=== PATIENT | female | born 1945 | race Caucasian/White ===

== ENCOUNTER 2017-07-06 16:45 | Inpatient (IN) | payer MEDICARE, MEDICAID ==
[~2017-07-06] VITALS: Ht 160 cm; Wt 54.0 kg
[~2017-07-06 16:45] MED LIST: ALEN70TA69 PO; AMAN100C12 PO; ASPI-556 PO; CARB100 PO; CARB200C4 PO; CLIN300C3 PO; DIVA250T25 PO; DOCU250C91 PO; FOLI1TAB15 PO; LEVO175T4 PO; LEVO500 PO; MULT-723 PO; NACL1 PO; PRAV20TA4 PO; RANI150T12 PO; RISP0.5T19 PO; SENN-175 PO; SERT50TA12 PO; [UNRECOGNIZED DRUG - OTHER] PO
[2017-07-06 17:50] VITALS: BP 105/66
[2017-07-06] MEDS ORDERED: DOCUSATE SODIUM 283 MG/5 ML MINI-ENEMA PR PRN (18:00)
[2017-07-06] MEDS ORDERED: ACETAMINOPHEN 325 MG TABLET PO PRN (18:00)
[2017-07-06 18:03] VITALS: BP 105/66
[2017-07-06] MEDS: AMANTADINE HCL 100 MG CAPSULE PO SCH (20:57)
[2017-07-06] MEDS: SENNA 187 MG TABLET PO SCH (20:58)
[2017-07-06] MEDS: DOCUSATE SODIUM 250 MG CAPSULE PO SCH (20:58)
[2017-07-06] MEDS: DIVALPROEX SODIUM 250 MG DR TABLET PO SCH (20:58)
[2017-07-06] MEDS: SODIUM CHLORIDE 1 GM TABLET PO SCH (20:58)
[2017-07-06] MEDS: PRAVASTATIN SODIUM 20 MG TABLET PO SCH (20:58)
[2017-07-06] MEDS: CLINDAMYCIN HCL 300 MG CAPSULE PO SCH (23:16)
[2017-07-07] VITALS: BP 130/79
[2017-07-07 06:45] LABS: BASOPHILS % (AUTO) 0.3 % (0.0-2.0); EOSINOPHILS % (AUTO) 2.1 % (1.0-6.0); HEMOGLOBIN 14.3 g/dL (12.0-16.0); LYMPHOCYTES # (AUTO) 1.8 K/uL (1.0-4.8); LYMPHOCYTES % (AUTO) 21.5 % (22.0-44.0); MEAN CORPUSCULAR HEMOGLOBIN 36.7 pg (26.0-34.0); MEAN CORPUSCULAR VOLUME 105 fL (80-100); MONOCYTES % (AUTO) 12.2 % (2.0-9.0); NEUTROPHILS # (AUTO) 5.4 K/uL (1.8-7.7); NEUTROPHILS % (AUTO) 63.9 % (40.0-70.0); PLATELET COUNT (AUTO) 195 K/uL (150-450); RED CELL DISTRIBUTION WIDTH 13.7 % (11.5-14.5); WHITE BLOOD COUNT (AUTO) 8.5 K/uL (4.5-11.0)
[2017-07-07 06:53] LABS: ALANINE AMINOTRANSFERASE 14 U/L (12-78); ANION GAP 6 mmol/L (8-16); ASPARTATE AMINOTRANSFERASE 11 U/L (15-37); BILIRUBIN,TOTAL 0.3 mg/dL (0.1-1.0); CALCIUM, TOTAL 8.2 mg/dL (8.8-10.5); CARBON DIOXIDE 27 mmol/L (22-29); CHLORIDE 95 mmol/L (98-107); CREATININE 0.57 mg/dL (0.60-1.30); GLOMERULAR FILTR. RATE CALC > 60 mL/min (>60); POTASSIUM 4.3 mmol/L (3.5-5.1); SODIUM SERUM 128 mmol/L (136-145); TOTAL PROTEIN, SERUM 6.3 g/dL (6.4-8.2); UREA NITROGEN, BLOOD 17 mg/dL (7-18)
[2017-07-07 07:30] VITALS: BP 132/73
[2017-07-07 07:37] LABS: RBC MORPHOLOGY COMMENT ABNORMAL RBC MORPH
[2017-07-07 08:02] LABS: APPEARANCE,URINE CLEAR (CLEAR); GLUCOSE, URINE (UA) NEGATIVE (NEGATIVE); KETONES,URINE NEGATIVE (NEGATIVE); LEUKOCYTE ESTERASE ,URINE NEGATIVE (NEGATIVE); PROTEIN,URINE NEGATIVE (NEGATIVE)
[2017-07-07] MEDS: SODIUM CHLORIDE 1 GM TABLET PO SCH ×2 (08:03→21:05)
[2017-07-07] MEDS: LEVOFLOXACIN 500 MG TABLET PO SCH (08:03)
[2017-07-07] MEDS: DOCUSATE SODIUM 250 MG CAPSULE PO SCH ×2 (08:04→21:00)
[2017-07-07] MEDS: AMANTADINE HCL 100 MG CAPSULE PO SCH ×2 (08:04→21:05)
[2017-07-07] MEDS: PANTOPRAZOLE SODIUM 40 MG DR TABLET PO SCH (08:04)
[2017-07-07] MEDS: DIVALPROEX SODIUM 250 MG DR TABLET PO SCH ×2 (08:04→21:06)
[2017-07-07] MEDS: CLINDAMYCIN HCL 300 MG CAPSULE PO SCH ×3 (08:05→23:52)
[2017-07-07 08:17] LABS: ADD UA MICROSCOPIC YES; OCCULT BLOOD,URINE TRACE (NEGATIVE)
[2017-07-07 08:18] LABS: RBC,URINE 0-2 /HPF (0-2); SQUAMOUS EPITHELIAL CELL,UR Rare /LPF (None Seen); WBC,URINE None Seen /HPF (0-5)
[2017-07-07] MEDS ORDERED: CLINDAMYCIN HCL 150 MG CAPSULE PO SCH (09:00)
[2017-07-07 15:03] VITALS: BP 137/65
[2017-07-07] MEDS: SENNA 187 MG TABLET PO SCH (21:00)
[2017-07-07] MEDS: PRAVASTATIN SODIUM 20 MG TABLET PO SCH (21:05)
[2017-07-08 00:44] VITALS: BP 132/80
[2017-07-08 08:00] VITALS: BP 141/77
[2017-07-08] MEDS: DIVALPROEX SODIUM 250 MG DR TABLET PO SCH ×2 (08:16→20:08)
[2017-07-08] MEDS: ASPIRIN 81 MG CHEWABLE TABLET PO SCH (08:17)
[2017-07-08] MEDS: PANTOPRAZOLE SODIUM 40 MG DR TABLET PO SCH (08:17)
[2017-07-08] MEDS: AMANTADINE HCL 100 MG CAPSULE PO SCH ×2 (08:17→20:09)
[2017-07-08] MEDS: DOCUSATE SODIUM 250 MG CAPSULE PO SCH ×2 (08:17→20:08)
[2017-07-08] MEDS: LEVOFLOXACIN 500 MG TABLET PO SCH (08:17)
[2017-07-08] MEDS: SODIUM CHLORIDE 1 GM TABLET PO SCH ×2 (08:17→20:08)
[2017-07-08] MEDS: CLINDAMYCIN HCL 300 MG CAPSULE PO SCH ×3 (08:17→23:18)
[2017-07-08 14:57] VITALS: BP 146/76
[2017-07-08] MEDS: SENNA 187 MG TABLET PO SCH (20:08)
[2017-07-08] MEDS: PRAVASTATIN SODIUM 20 MG TABLET PO SCH (20:08)
[2017-07-08] MEDS: RisperiDONE 0.5 MG TABLET PO SCH (20:08)
[2017-07-08 23:21] VITALS: BP 107/68
[2017-07-09] MEDS: LEVOTHYROXINE SODIUM 125 MCG TABLET PO SCH (06:18)
[2017-07-09 07:40] VITALS: BP 125/70
[2017-07-09] MEDS: ASPIRIN 81 MG CHEWABLE TABLET PO SCH (08:47)
[2017-07-09] MEDS: SERTRALINE HCL 50 MG TABLET PO SCH (08:47)
[2017-07-09] MEDS: DIVALPROEX SODIUM 250 MG DR TABLET PO SCH ×2 (08:47→21:10)
[2017-07-09] MEDS: DOCUSATE SODIUM 250 MG CAPSULE PO SCH ×2 (08:49→21:10)
[2017-07-09] MEDS: AMANTADINE HCL 100 MG CAPSULE PO SCH ×2 (08:49→21:10)
[2017-07-09] MEDS: PANTOPRAZOLE SODIUM 40 MG DR TABLET PO SCH (08:49)
[2017-07-09] MEDS: SODIUM CHLORIDE 1 GM TABLET PO SCH ×2 (08:49→21:10)
[2017-07-09] MEDS: RisperiDONE 0.5 MG TABLET PO SCH ×2 (08:49→21:00)
[2017-07-09] MEDS: CLINDAMYCIN HCL 300 MG CAPSULE PO SCH ×3 (08:50→23:06)
[2017-07-09] MEDS: LEVOFLOXACIN 500 MG TABLET PO SCH (08:52)
[2017-07-09 15:02] VITALS: BP 136/70
[2017-07-09 18:00] VITALS: BP 156/86
[2017-07-09 19:25] VITALS: BP 165/85
[2017-07-09 20:37] VITALS: BP 112/86
[2017-07-09] MEDS: SENNA 187 MG TABLET PO SCH (21:10)
[2017-07-09] MEDS: PRAVASTATIN SODIUM 20 MG TABLET PO SCH (21:10)
[2017-07-09 21:11] VITALS: BP 110/70
[2017-07-10] VITALS: BP 128/88
[2017-07-10] MEDS: LEVOTHYROXINE SODIUM 125 MCG TABLET PO SCH (06:17)
[2017-07-10 07:26] VITALS: BP 138/75
[2017-07-10] MEDS: CLINDAMYCIN HCL 300 MG CAPSULE PO SCH (08:56)
[2017-07-10] MEDS: LEVOFLOXACIN 500 MG TABLET PO SCH (08:56)
[2017-07-10] MEDS: DIVALPROEX SODIUM 250 MG DR TABLET PO SCH (08:56)
[2017-07-10] MEDS: SODIUM CHLORIDE 1 GM TABLET PO SCH (08:57)
[2017-07-10] MEDS: DOCUSATE SODIUM 250 MG CAPSULE PO SCH (08:57)
[2017-07-10] MEDS: PANTOPRAZOLE SODIUM 40 MG DR TABLET PO SCH (08:57)
[2017-07-10] MEDS: AMANTADINE HCL 100 MG CAPSULE PO SCH (08:57)
[2017-07-10] MEDS: SERTRALINE HCL 50 MG TABLET PO SCH (08:57)
[2017-07-10] MEDS: ASPIRIN 81 MG CHEWABLE TABLET PO SCH (08:57)
[2017-07-10] MEDS: RisperiDONE 0.5 MG TABLET PO SCH (08:57)
== END 2017-07-10 14:34 | disposition home or self-care (01) | DRG 56 ==
LOC: 2WR 16:45
DX: G81.91 Hemiplegia, unspecified affecting right dominant side (principal); I63.9 Cerebral infarction, unspecified; E44.0 Moderate protein-calorie malnutrition; E87.1 Hypo-osmolality and hyponatremia; G40.909 Epilepsy, unspecified, not intractable, without status epilepticus; E03.9 Hypothyroidism, unspecified; E78.5 Hyperlipidemia, unspecified; F31.9 Bipolar disorder, unspecified; Z79.899 Other long term (current) drug therapy; Z86.73 Personal history of transient ischemic attack (TIA), and cerebral infarction without residual deficits; Z88.2 Allergy status to sulfonamides; Z88.5 Allergy status to narcotic agent
CPT/HCPCS: 84295; 84443; 87081; 92507; 92523; 97110; 97116; 97162; 97167; 97530; 97535; 99366

== ENCOUNTER 2018-03-23 12:29 | Inpatient (IN) | payer MEDICARE, MEDICAID ==
[~2018-03-23] VITALS: Ht 160 cm; Wt 50.0 kg
[~2018-03-23 12:29] MED LIST changes: -CARB200C4 PO; -CLIN300C3 PO; -LEVO500 PO; +RANI-248 PO; -RANI150T12 PO; -SENN-175 PO; -[UNRECOGNIZED DRUG - OTHER] PO
[2018-03-23] MEDS ORDERED: IOVERSOL 350 MG/ML 100 ML VIAL ONE (12:40)
[2018-03-23] MEDS ORDERED: ALTEPLASE PER STROKE PROTOCOL CLINICAL ONE (12:45)
[2018-03-23] MEDS ORDERED: WATER FOR INJECTION STERILE IV ONE ×2 (12:48)
[2018-03-23] MEDS ORDERED: ALTEPLASE IV ONE ×2 (12:48)
[2018-03-23 12:54] LABS: BASOPHILS % (AUTO) 0.6 % (0.0-2.0); EOSINOPHILS % (AUTO) 2.6 % (1.0-6.0); HEMATOCRIT 41.3 % (36-46); HEMOGLOBIN 14.4 g/dL (12.0-16.0); LYMPHOCYTES # (AUTO) 1.5 K/uL (1.0-4.8); LYMPHOCYTES % (AUTO) 20.6 % (22.0-44.0); MEAN CORPUSCULAR HEMOGLOBIN 35.8 pg (26.0-34.0); MEAN CORPUSCULAR VOLUME 102 fL (80-100); MONOCYTES # (AUTO) 1.1 K/uL (0.1-1.0); MONOCYTES % (AUTO) 15.3 % (2.0-9.0); NEUTROPHILS # (AUTO) 4.5 K/uL (1.8-7.7); NEUTROPHILS % (AUTO) 60.9 % (40.0-70.0); PLATELET COUNT (AUTO) 121 K/uL (150-450); RED BLOOD CELL COUNT(AUTO) 4.04 MIL/uL (4.00-5.20); RED CELL DISTRIBUTION WIDTH 14.2 % (11.5-14.5)
[2018-03-23] MEDS ORDERED: LORazepam 2 MG/ML VIAL IVP ONE (13:00)
[2018-03-23 13:03] LABS: ANION GAP 7 mmol/L (8-16); CALCIUM, TOTAL 8.7 mg/dL (8.8-10.5); CARBON DIOXIDE 28 mmol/L (22-29); CHLORIDE 96 mmol/L (98-107); GLOMERULAR FILTR. RATE CALC > 60 mL/min (>60); GLUCOSE,RANDOM 84 mg/dL (70-110); POTASSIUM 4.2 mmol/L (3.5-5.1); SODIUM SERUM 131 mmol/L (136-145); UREA NITROGEN, BLOOD 18 mg/dL (7-18)
[2018-03-23 13:08] LABS: PROTHROMBIN TIME 10.5 SEC (9.4-11.6)
[2018-03-23 13:17] LABS: ALANINE AMINOTRANSFERASE 20 U/L (12-78); ALBUMIN 3.5 g/dL (3.4-5.0); ALKALINE PHOSPHATASE 63 U/L (46-116); ASPARTATE AMINOTRANSFERASE 15 U/L (15-37); BILIRUBIN,TOTAL 0.3 mg/dL (0.1-1.0); CREATINE KINASE, TOTAL 44 U/L (26-192); THYROID STIMULATING HORMONE 0.11 uIU/mL (0.36-3.74); TOTAL PROTEIN, SERUM 7.4 g/dL (6.4-8.2); VALPROIC ACID 88 mcg/mL (50-100)
[2018-03-23 13:48] LABS: APPEARANCE,URINE CLEAR (CLEAR); BILIRUBIN,URINE NEGATIVE (NEGATIVE); GLUCOSE, URINE (UA) NEGATIVE (NEGATIVE); KETONES,URINE NEGATIVE (NEGATIVE); LEUKOCYTE ESTERASE ,URINE NEGATIVE (NEGATIVE); NITRATE,URINE NEGATIVE (NEGATIVE); OCCULT BLOOD,URINE MODERATE (NEGATIVE); PROTEIN,URINE NEGATIVE (NEGATIVE); UROBILINOGEN,URINE 0.2 mg/dL (<=1.0)
[2018-03-23 13:52] LABS: BACTERIA,URINE Few /HPF (None Seen); SQUAMOUS EPITHELIAL CELL,UR Few /LPF (None Seen); WBC,URINE 0-2 /HPF (0-5)
[2018-03-23] MEDS ORDERED: HYDROCODONE/ACETAMINOPHEN 5-325 MG TABLET PO PRN (16:00)
[2018-03-23] MEDS ORDERED: ALBUTEROL SULFATE 2.5 MG/0.5 ML NEB SOLUTION NEB PRN (16:00)
[2018-03-23] MEDS ORDERED: IPRATROPIUM BROMIDE 0.5 MG/2.5 ML NEB SOLUTION NEB PRN (16:00)
[2018-03-23] MEDS ORDERED: ZOLPIDEM TARTRATE 5 MG TABLET PO PRN (16:00)
[2018-03-23] MEDS ORDERED: ACETAMINOPHEN 325 MG TABLET PO PRN (16:00)
[2018-03-23] MEDS ORDERED: HEPARIN SODIUM,PORCINE 5,000 UNITS/ML VIAL SQ SCH (16:00)
[2018-03-23] MEDS ORDERED: MAGNESIUM HYDROXIDE SUSPENSION 30 ML UDCUP PO PRN (16:00)
[2018-03-23] MEDS ORDERED: ONDANSETRON HCL 4 MG/2 ML VIAL IVP PRN (16:00)
[2018-03-23] MEDS ORDERED: BISACODYL 10 MG RECTAL RECTAL SUPPOSITORY PR PRN (16:00)
[2018-03-23 16:12] VITALS: BP 149/49
[2018-03-23 20:00] VITALS: BP 130/59
[2018-03-23] MEDS: DOCUSATE SODIUM 100 MG CAPSULE PO SCH (21:00)
[2018-03-23] MEDS: VALPROATE SODIUM 750 MG in DEXTROSE 5%-WATER 100 ML IV SCH (21:43)
[2018-03-23] MEDS ORDERED: SODIUM CHLORIDE 0.9% 250 ML IV ONE (21:44)
[2018-03-24] VITALS: BP 129/66
[2018-03-24 04:00] VITALS: BP 103/55
[2018-03-24 08:00] VITALS: BP 170/51
[2018-03-24] MEDS: PANTOPRAZOLE SODIUM 40 MG/VIAL IVP SCH (08:37)
[2018-03-24] MEDS: VALPROATE SODIUM 750 MG in DEXTROSE 5%-WATER 100 ML IV SCH (08:38)
[2018-03-24] MEDS: DOCUSATE SODIUM 100 MG CAPSULE PO SCH ×2 (08:38→21:00)
[2018-03-24] MEDS: CarBAMazepine 100 MG CHEWABLE TABLET PO SCH ×2 (08:38→21:00)
[2018-03-24 12:00] VITALS: BP 117/84
[2018-03-24] MEDS ORDERED: LORazepam 2 MG/ML VIAL IM ONE (13:45)
[2018-03-24] MEDS ORDERED: LORazepam 2 MG/ML VIAL IVP ONE ×2 (13:45→14:00)
[2018-03-24 16:00] VITALS: BP 121/62
[2018-03-24] MEDS: DEXTROSE 5%-0.45% SODIUM CHL 1,000 ML IV SCH (19:37)
[2018-03-24 21:08] VITALS: BP 129/90
[2018-03-25] VITALS (7 sets, daily range): BP systolic 96–176; BP diastolic 59–88
[2018-03-25] MEDS: VALPROATE SODIUM 750 MG in DEXTROSE 5%-WATER 100 ML IV SCH ×3 (00:18→22:43)
[2018-03-25] MEDS: DEXTROSE 5%-0.45% SODIUM CHL 1,000 ML IV SCH (07:50)
[2018-03-25] MEDS: DOCUSATE SODIUM 100 MG CAPSULE PO SCH ×3 (09:00→21:26)
[2018-03-25] MEDS: CarBAMazepine 100 MG CHEWABLE TABLET PO SCH ×3 (09:00→21:26)
[2018-03-25] MEDS: PANTOPRAZOLE SODIUM 40 MG/VIAL IVP SCH (10:15)
[2018-03-25] MEDS ORDERED: SODIUM CHLORIDE 0.9% 250 ML IV ONE (10:15)
[2018-03-25] MEDS ORDERED: LORazepam 2 MG/ML VIAL IVP PRN (12:15)
[2018-03-25] MEDS: LORazepam 2 MG/ML VIAL IM PRN ×2 (13:28→18:47)
[2018-03-25 15:07] LABS: BASOPHILS % (AUTO) 0.3 % (0.0-2.0); EOSINOPHILS % (AUTO) 2.4 % (1.0-6.0); HEMATOCRIT 44.4 % (36-46); HEMOGLOBIN 15.4 g/dL (12.0-16.0); LYMPHOCYTES # (AUTO) 1.3 K/uL (1.0-4.8); LYMPHOCYTES % (AUTO) 21.6 % (22.0-44.0); MEAN CORPUSCULAR HEMOGLOBIN 35.2 pg (26.0-34.0); MEAN CORPUSCULAR HGB CONC 34.8 G/dL (31.0-37.0); MEAN CORPUSCULAR VOLUME 101 fL (80-100); MONOCYTES % (AUTO) 16.5 % (2.0-9.0); NEUTROPHILS # (AUTO) 3.5 K/uL (1.8-7.7); NEUTROPHILS % (AUTO) 59.2 % (40.0-70.0); PLATELET COUNT (AUTO) 114 K/uL (150-450); RED BLOOD CELL COUNT(AUTO) 4.38 MIL/uL (4.00-5.20); RED CELL DISTRIBUTION WIDTH 13.9 % (11.5-14.5)
[2018-03-25 15:22] LABS: ANION GAP 11 mmol/L (8-16); CALCIUM, TOTAL 8.1 mg/dL (8.8-10.5); CARBON DIOXIDE 24 mmol/L (22-29); CHLORIDE 98 mmol/L (98-107); CREATININE 0.55 mg/dL (0.60-1.30); GLOMERULAR FILTR. RATE CALC > 60 mL/min (>60); GLUCOSE,RANDOM 79 mg/dL (70-110); POTASSIUM 3.9 mmol/L (3.5-5.1); SODIUM SERUM 133 mmol/L (136-145); UREA NITROGEN, BLOOD 12 mg/dL (7-18)
[2018-03-25] MEDS ORDERED: LevETIRAcetam 500 MG TABLET PO SCH (22:00)
[2018-03-25] MEDS ORDERED: LevETIRAcetam 1,000 MG in DEXTROSE 5%-WATER 100 ML IV ONE (22:30)
[2018-03-26 04:00] VITALS: BP 103/63
[2018-03-26] MEDS: DEXTROSE 5%-0.45% SODIUM CHL 1,000 ML IV SCH ×2 (04:11→21:31)
[2018-03-26] MEDS ORDERED: ALENDRONATE SODIUM 70 MG TABLET PO SCH (06:30)
[2018-03-26] MEDS: LEVOTHYROXINE SODIUM 125 MCG TABLET PO SCH (06:43)
[2018-03-26 07:45] VITALS: BP 101/64
[2018-03-26 07:49] LABS: ALANINE AMINOTRANSFERASE 17 U/L (12-78); ALBUMIN 3.2 g/dL (3.4-5.0); ALKALINE PHOSPHATASE 58 U/L (46-116); ANION GAP 6 mmol/L (8-16); ASPARTATE AMINOTRANSFERASE 22 U/L (15-37); BILIRUBIN,TOTAL 0.5 mg/dL (0.1-1.0); CARBAMAZEPINE (TEGRETOL) 0.5 mcg/mL (4.0-12.0); CARBON DIOXIDE 26 mmol/L (22-29); CHLORIDE 99 mmol/L (98-107); GLOMERULAR FILTR. RATE CALC > 60 mL/min (>60); GLUCOSE,RANDOM 85 mg/dL (70-110); SODIUM SERUM 131 mmol/L (136-145); UREA NITROGEN, BLOOD 8 mg/dL (7-18); VALPROIC ACID 90 mcg/mL (50-100)
[2018-03-26] MEDS: PANTOPRAZOLE SODIUM 40 MG/VIAL IVP SCH (09:01)
[2018-03-26] MEDS: FOLIC ACID 1 MG TABLET PO SCH (09:01)
[2018-03-26] MEDS: ASPIRIN 81 MG EC TABLET PO SCH (09:01)
[2018-03-26] MEDS: RisperiDONE 0.5 MG TABLET PO SCH ×2 (09:01→21:31)
[2018-03-26] MEDS: LevETIRAcetam 500 MG TABLET PO SCH ×2 (09:01→21:31)
[2018-03-26] MEDS: CarBAMazepine 100 MG CHEWABLE TABLET PO SCH ×2 (09:02→21:31)
[2018-03-26] MEDS: VALPROATE SODIUM 750 MG in DEXTROSE 5%-WATER 100 ML IV SCH ×2 (09:02→21:31)
[2018-03-26] MEDS: SERTRALINE HCL 50 MG TABLET PO SCH (09:02)
[2018-03-26] MEDS: AMANTADINE HCL 100 MG CAPSULE PO SCH ×2 (09:02→21:31)
[2018-03-26 11:12] VITALS: BP 102/50
[2018-03-26 15:03] VITALS: BP 124/65
[2018-03-26 15:42] LABS: APPEARANCE,URINE CLEAR (CLEAR); BILIRUBIN,URINE NEGATIVE (NEGATIVE); GLUCOSE, URINE (UA) NEGATIVE (NEGATIVE); KETONES,URINE NEGATIVE (NEGATIVE); LEUKOCYTE ESTERASE ,URINE SMALL (NEGATIVE); NITRATE,URINE NEGATIVE (NEGATIVE); OCCULT BLOOD,URINE MODERATE (NEGATIVE); PROTEIN,URINE NEGATIVE (NEGATIVE)
[2018-03-26 16:38] LABS: BACTERIA,URINE Rare /HPF (None Seen)
[2018-03-26 16:39] LABS: RENAL EPITHELIAL CELLS,URINE Rare /LPF (None Seen); SQUAMOUS EPITHELIAL CELL,UR Rare /LPF (None Seen)
[2018-03-26 19:35] VITALS: BP 130/53
[2018-03-26] MEDS: DOCUSATE SODIUM 250 MG CAPSULE PO SCH (21:31)
[2018-03-26] MEDS: PRAVASTATIN SODIUM 20 MG TABLET PO SCH (21:31)
[2018-03-26] MEDS: LORazepam 2 MG/ML VIAL IM PRN (22:40)
[2018-03-27] VITALS: BP 96/51
[2018-03-27 05:00] VITALS: BP 136/74
[2018-03-27] MEDS: LEVOTHYROXINE SODIUM 125 MCG TABLET PO SCH ×2 (06:10→06:14)
[2018-03-27 07:52] VITALS: BP 130/69
[2018-03-27] MEDS: LevETIRAcetam 500 MG TABLET PO SCH ×2 (08:31→21:19)
[2018-03-27] MEDS: PANTOPRAZOLE SODIUM 40 MG/VIAL IVP SCH (08:31)
[2018-03-27] MEDS: ASPIRIN 81 MG EC TABLET PO SCH (08:32)
[2018-03-27] MEDS: CarBAMazepine 100 MG CHEWABLE TABLET PO SCH ×2 (08:32→21:19)
[2018-03-27] MEDS: FOLIC ACID 1 MG TABLET PO SCH (08:32)
[2018-03-27] MEDS: RisperiDONE 0.5 MG TABLET PO SCH ×2 (08:32→21:19)
[2018-03-27] MEDS: SERTRALINE HCL 50 MG TABLET PO SCH (08:32)
[2018-03-27] MEDS: VALPROATE SODIUM 750 MG in DEXTROSE 5%-WATER 100 ML IV SCH ×2 (08:33→21:25)
[2018-03-27] MEDS: AMANTADINE HCL 100 MG CAPSULE PO SCH ×2 (08:33→21:19)
[2018-03-27 09:07] LABS: BASOPHILS % (AUTO) 0.2 % (0.0-2.0); EOSINOPHILS % (AUTO) 3.4 % (1.0-6.0); HEMATOCRIT 42.9 % (36-46); LYMPHOCYTES % (AUTO) 14.8 % (22.0-44.0); MEAN CORPUSCULAR HEMOGLOBIN 35.5 pg (26.0-34.0); MEAN CORPUSCULAR VOLUME 101 fL (80-100); NEUTROPHILS # (AUTO) 4.8 K/uL (1.8-7.7); NEUTROPHILS % (AUTO) 67.6 % (40.0-70.0); PLATELET COUNT (AUTO) 132 K/uL (150-450); RED BLOOD CELL COUNT(AUTO) 4.23 MIL/uL (4.00-5.20)
[2018-03-27 09:25] LABS: ALANINE AMINOTRANSFERASE 20 U/L (12-78); ALBUMIN 3.1 g/dL (3.4-5.0); ALKALINE PHOSPHATASE 69 U/L (46-116); ANION GAP 4 mmol/L (8-16); ASPARTATE AMINOTRANSFERASE 15 U/L (15-37); BILIRUBIN,TOTAL 0.4 mg/dL (0.1-1.0); CALCIUM, TOTAL 8.1 mg/dL (8.8-10.5); CARBON DIOXIDE 29 mmol/L (22-29); CHLORIDE 99 mmol/L (98-107); CREATININE 0.63 mg/dL (0.60-1.30); GLOMERULAR FILTR. RATE CALC > 60 mL/min (>60); GLUCOSE,RANDOM 89 mg/dL (70-110); POTASSIUM 4.1 mmol/L (3.5-5.1); SODIUM SERUM 132 mmol/L (136-145); UREA NITROGEN, BLOOD 7 mg/dL (7-18)
[2018-03-27 11:54] VITALS: BP 128/75
[2018-03-27 15:18] VITALS: BP 135/67
[2018-03-27 19:55] VITALS: BP 116/68
[2018-03-27] MEDS: DOCUSATE SODIUM 250 MG CAPSULE PO SCH (21:19)
[2018-03-27] MEDS: PRAVASTATIN SODIUM 20 MG TABLET PO SCH (21:19)
[2018-03-28 00:01] VITALS: BP 96/73
[2018-03-28 05:17] VITALS: BP 114/79
[2018-03-28] MEDS: LEVOTHYROXINE SODIUM 125 MCG TABLET PO SCH (06:03)
[2018-03-28 06:47] LABS: BASOPHILS % (AUTO) 0.3 % (0.0-2.0); EOSINOPHILS % (AUTO) 4.1 % (1.0-6.0); HEMOGLOBIN 14.5 g/dL (12.0-16.0); LYMPHOCYTES # (AUTO) 1.6 K/uL (1.0-4.8); LYMPHOCYTES % (AUTO) 23.9 % (22.0-44.0); MEAN CORPUSCULAR HEMOGLOBIN 35.6 pg (26.0-34.0); MEAN CORPUSCULAR HGB CONC 34.6 G/dL (31.0-37.0); MEAN CORPUSCULAR VOLUME 103 fL (80-100); MONOCYTES % (AUTO) 14.5 % (2.0-9.0); NEUTROPHILS # (AUTO) 3.9 K/uL (1.8-7.7); NEUTROPHILS % (AUTO) 57.2 % (40.0-70.0); PLATELET COUNT (AUTO) 123 K/uL (150-450); RED BLOOD CELL COUNT(AUTO) 4.09 MIL/uL (4.00-5.20); RED CELL DISTRIBUTION WIDTH 14.3 % (11.5-14.5)
[2018-03-28 07:32] VITALS: BP 99/68
[2018-03-28] MEDS: AMANTADINE HCL 100 MG CAPSULE PO SCH (08:18)
[2018-03-28] MEDS: SERTRALINE HCL 50 MG TABLET PO SCH (08:18)
[2018-03-28] MEDS: PANTOPRAZOLE SODIUM 40 MG/VIAL IVP SCH (08:18)
[2018-03-28] MEDS: RisperiDONE 0.5 MG TABLET PO SCH (08:19)
[2018-03-28] MEDS: CarBAMazepine 100 MG CHEWABLE TABLET PO SCH (08:19)
[2018-03-28] MEDS: ASPIRIN 81 MG EC TABLET PO SCH (08:31)
[2018-03-28] MEDS: LevETIRAcetam 500 MG TABLET PO SCH (08:31)
[2018-03-28] MEDS: FOLIC ACID 1 MG TABLET PO SCH (08:31)
[2018-03-28] MEDS: VALPROATE SODIUM 750 MG in DEXTROSE 5%-WATER 100 ML IV SCH (08:32)
[2018-03-28 11:45] VITALS: BP 100/66
[2018-03-28] MEDS ORDERED: PANT40TA25 PO (15:20)
[2018-03-28] MEDS ORDERED: LEVE500T53 PO (15:21)
[2018-03-28 15:31] VITALS: BP 105/68
== END 2018-03-28 18:40 | disposition home health service (06) | DRG 61 ==
LOC: EMS 12:30 → ICU 15:08 → 5S 03-24 20:40
PROVIDERS: ADMIT Hospitalist; ATTEND Hospitalist
DX: I63.9 Cerebral infarction, unspecified (principal); G93.40 Encephalopathy, unspecified; G81.01 Flaccid hemiplegia affecting right dominant side; H51.8 Other specified disorders of binocular movement; G40.909 Epilepsy, unspecified, not intractable, without status epilepticus; G83.84 Todd's paralysis (postepileptic); E78.5 Hyperlipidemia, unspecified; E03.9 Hypothyroidism, unspecified; Z86.73 Personal history of transient ischemic attack (TIA), and cerebral infarction without residual deficits; E78.00 Pure hypercholesterolemia, unspecified; Z79.899 Other long term (current) drug therapy; Z79.82 Long term (current) use of aspirin; Z88.5 Allergy status to narcotic agent; Z88.2 Allergy status to sulfonamides
CPT/HCPCS: 37195; 70496; 70551; 83735; 84443; 87081; 92610; 93005; 95816; 96374; 99291; C9113; J0712; J2060; J2997; J3490; J7050; J7060

== ENCOUNTER 2018-11-11 13:38 | Inpatient (IN) | payer MEDICARE, MEDICAID ==
[~2018-11-11] VITALS: Ht 165.1 cm; Wt 64.1 kg
[~2018-11-11 13:38] MED LIST changes: +ALEN70TA19 PO; -ALEN70TA69 PO; +DIVA-53 PO; -DIVA250T25 PO; +LEVE500T53 PO; -MULT-723 PO; +PANT40TA25 PO
[2018-11-11 14:29] LABS: BASOPHILS % (AUTO) 0.2 % (0.0-2.0); EOSINOPHILS % (AUTO) 0.7 % (1.0-6.0); HEMATOCRIT 40.5 % (36-46); HEMOGLOBIN 13.9 g/dL (12.0-16.0); LYMPHOCYTES # (AUTO) 0.9 K/uL (1.0-4.8); MEAN CORPUSCULAR HEMOGLOBIN 36.4 pg (26.0-34.0); MEAN CORPUSCULAR HGB CONC 34.3 G/dL (31.0-37.0); MEAN CORPUSCULAR VOLUME 106 fL (80-100); MONOCYTES # (AUTO) 2.3 K/uL (0.1-1.0); NEUTROPHILS # (AUTO) 9.5 K/uL (1.8-7.7); NEUTROPHILS % (AUTO) 74.1 % (40.0-70.0); PLATELET COUNT (AUTO) 128 K/uL (150-450); RED BLOOD CELL COUNT(AUTO) 3.82 MIL/uL (4.00-5.20); RED CELL DISTRIBUTION WIDTH 13.6 % (11.5-14.5)
[2018-11-11 14:36] LABS: INR 1.1 (0.9-1.1); PROTHROMBIN TIME 11.1 SEC (9.4-11.6)
[2018-11-11 14:41] LABS: ANION GAP 7 mmol/L (8-16); CALCIUM, TOTAL 9.3 mg/dL (8.8-10.5); CARBON DIOXIDE 30 mmol/L (22-29); CHLORIDE 102 mmol/L (98-107); CREATININE 0.58 mg/dL (0.60-1.30); GLUCOSE,RANDOM 141 mg/dL (70-110); POTASSIUM 4.5 mmol/L (3.5-5.1); SODIUM SERUM 139 mmol/L (136-145); UREA NITROGEN, BLOOD 24 mg/dL (7-18)
[2018-11-11 14:44] LABS: GLOMERULAR FILTR. RATE CALC > 60 mL/min (>60)
[2018-11-11 14:48] LABS: ALANINE AMINOTRANSFERASE 23 U/L (12-78); ALBUMIN 2.8 g/dL (3.4-5.0); ALKALINE PHOSPHATASE 83 U/L (46-116); ASPARTATE AMINOTRANSFERASE 18 U/L (15-37); BILIRUBIN,TOTAL 0.3 mg/dL (0.1-1.0); CREATINE KINASE, TOTAL ONLY 29 U/L (26-192); TOTAL PROTEIN, SERUM 6.8 g/dL (6.4-8.2); VALPROIC ACID 84 mcg/mL (50-100)
[2018-11-11 14:49] LABS: TROPONIN I 0.02 ng/mL (0.00-0.05)
[2018-11-11 14:50] LABS: CARBAMAZEPINE (TEGRETOL) < 0.5 mcg/mL (4.0-12.0)
[2018-11-11 16:26] LABS: APPEARANCE,URINE TURBID (CLEAR); BILIRUBIN,URINE NEGATIVE (NEGATIVE); GLUCOSE, URINE (UA) NEGATIVE (NEGATIVE); KETONES,URINE TRACE mg/dL (NEGATIVE); LEUKOCYTE ESTERASE ,URINE LARGE (NEGATIVE); NITRATE,URINE POSITIVE (NEGATIVE); OCCULT BLOOD,URINE LARGE (NEGATIVE); PROTEIN,URINE POS 1+ (NEGATIVE)
[2018-11-11 16:32] LABS: AMPHET/METH SCREEN,URINE NEGATIVE (NEGATIVE); BARBITURATE SCREEN, URINE NEGATIVE (NEGATIVE); BENZODIAZEPINES SCREEN,URINE NEGATIVE (NEGATIVE); CANNABINOID SCREEN,URINE NEGATIVE (NEGATIVE); COCAINE SCREEN,URINE NEGATIVE (NEGATIVE); METHADONE SCREEN, URINE NEGATIVE (NEGATIVE); OPIATE SCREEN,URINE NEGATIVE (NEGATIVE)
[2018-11-11 16:33] LABS: PHENCYCLIDINE SCREEN,URINE NEGATIVE (NEGATIVE)
[2018-11-11 16:37] LABS: BACTERIA,URINE Many /HPF (None Seen); RBC,URINE 26-50 /HPF (0-2); WBC,URINE >100 /HPF (0-5)
[2018-11-11 16:38] LABS: SQUAMOUS EPITHELIAL CELL,UR Few /LPF (None Seen)
[2018-11-11] MEDS ORDERED: CefTRIAXone 1 GM/DEXTROSE 50 ML IV ONE (17:00)
[2018-11-11] MEDS ORDERED: ONDANSETRON HCL 4 MG/2 ML VIAL IVP PRN (17:15)
[2018-11-11] MEDS ORDERED: ACETAMINOPHEN 325 MG TABLET PO PRN ×2 (17:15→21:00)
[2018-11-11] MEDS ORDERED: SODIUM CHLORIDE 0.9% 1,000 ML IV ONE (17:15)
[2018-11-11 19:06] VITALS: BP 133/79
[2018-11-11] MEDS ORDERED: MAGNESIUM HYDROXIDE SUSPENSION 30 ML UDCUP PO PRN (21:00)
[2018-11-11] MEDS ORDERED: ALBUTEROL SULFATE 2.5 MG/0.5 ML NEB SOLUTION NEB PRN (21:00)
[2018-11-11] MEDS ORDERED: SODIUM CHLORIDE 0.45% 1,000 ML IV ONE (21:00)
[2018-11-11] MEDS: HEPARIN SODIUM,PORCINE 5,000 UNITS/ML VIAL SQ SCH (21:51)
[2018-11-11] MEDS: DOCUSATE SODIUM 100 MG CAPSULE PO SCH (21:51)
[2018-11-11] MEDS: ATORVASTATIN CALCIUM 20 MG TABLET PO SCH (21:52)
[2018-11-11] MEDS: LevETIRAcetam 500 MG TABLET PO SCH (21:52)
[2018-11-11 23:59] VITALS: BP 132/59
[2018-11-12 05:47] VITALS: BP 146/78
[2018-11-12 06:07] LABS: BASOPHILS % (AUTO) 0.1 % (0.0-2.0); EOSINOPHILS % (AUTO) 2.3 % (1.0-6.0); HEMATOCRIT 36.6 % (36-46); HEMOGLOBIN 12.5 g/dL (12.0-16.0); LYMPHOCYTES # (AUTO) 2.2 K/uL (1.0-4.8); LYMPHOCYTES % (AUTO) 24.3 % (22.0-44.0); MEAN CORPUSCULAR HGB CONC 34.2 G/dL (31.0-37.0); MEAN CORPUSCULAR VOLUME 105 fL (80-100); MONOCYTES # (AUTO) 1.2 K/uL (0.1-1.0); MONOCYTES % (AUTO) 12.8 % (2.0-9.0); NEUTROPHILS # (AUTO) 5.5 K/uL (1.8-7.7); NEUTROPHILS % (AUTO) 60.5 % (40.0-70.0); PLATELET COUNT (AUTO) 114 K/uL (150-450); RED BLOOD CELL COUNT(AUTO) 3.47 MIL/uL (4.00-5.20); RED CELL DISTRIBUTION WIDTH 13.8 % (11.5-14.5)
[2018-11-12] MEDS: DOCUSATE SODIUM 100 MG CAPSULE PO SCH ×2 (08:15→20:29)
[2018-11-12] MEDS: PANTOPRAZOLE SODIUM 40 MG DR TABLET PO SCH (08:16)
[2018-11-12] MEDS: LevETIRAcetam 500 MG TABLET PO SCH ×2 (08:16→20:30)
[2018-11-12] MEDS: ASPIRIN 81 MG CHEWABLE TABLET PO SCH (08:16)
[2018-11-12] MEDS: HEPARIN SODIUM,PORCINE 5,000 UNITS/ML VIAL SQ SCH ×2 (08:17→20:30)
[2018-11-12] MEDS: MULTIVITAMINS WITH MINERALS, THERAPEUTIC TABLET PO SCH (08:20)
[2018-11-12] MEDS ORDERED: MULTIVITAMINS WITH MINERALS, THERAPEUTIC TABLET PO SCH (09:00)
[2018-11-12 11:49] VITALS: BP 145/75
[2018-11-12] MEDS ORDERED: SODIUM CHLORIDE 0.9% 500 ML IV ONE (16:06)
[2018-11-12 16:10] VITALS: BP 130/66
[2018-11-12] MEDS: CefTRIAXone 1 GM/DEXTROSE 50 ML IV SCH (16:14)
[2018-11-12 20:02] VITALS: BP 148/81
[2018-11-12] MEDS: ATORVASTATIN CALCIUM 20 MG TABLET PO SCH (20:29)
[2018-11-12 23:41] VITALS: BP 148/74
[2018-11-13 05:17] VITALS: BP 134/84
[2018-11-13 08:19] VITALS: BP 141/68
[2018-11-13] MEDS: MULTIVITAMINS WITH MINERALS, THERAPEUTIC TABLET PO SCH (08:32)
[2018-11-13] MEDS: PANTOPRAZOLE SODIUM 40 MG DR TABLET PO SCH (08:32)
[2018-11-13] MEDS: ASPIRIN 81 MG CHEWABLE TABLET PO SCH (08:32)
[2018-11-13] MEDS: DOCUSATE SODIUM 100 MG CAPSULE PO SCH ×2 (08:32→20:21)
[2018-11-13] MEDS: LevETIRAcetam 500 MG TABLET PO SCH ×2 (08:32→20:21)
[2018-11-13] MEDS: HEPARIN SODIUM,PORCINE 5,000 UNITS/ML VIAL SQ SCH ×2 (08:32→20:21)
[2018-11-13 11:18] VITALS: BP 138/75
[2018-11-13 15:20] VITALS: BP 151/97
[2018-11-13] MEDS: CefTRIAXone 1 GM/DEXTROSE 50 ML IV SCH (17:46)
[2018-11-13 19:57] VITALS: BP 136/80
[2018-11-13] MEDS: ATORVASTATIN CALCIUM 20 MG TABLET PO SCH (20:21)
[2018-11-13 23:11] VITALS: BP 153/82
[2018-11-14 05:31] VITALS: BP 155/62
[2018-11-14 07:45] VITALS: BP 138/64
[2018-11-14] MEDS: MULTIVITAMINS WITH MINERALS, THERAPEUTIC TABLET PO SCH (08:35)
[2018-11-14] MEDS: PANTOPRAZOLE SODIUM 40 MG DR TABLET PO SCH (08:35)
[2018-11-14] MEDS: ASPIRIN 81 MG CHEWABLE TABLET PO SCH (08:35)
[2018-11-14] MEDS: LevETIRAcetam 500 MG TABLET PO SCH ×2 (08:35→20:06)
[2018-11-14] MEDS: DOCUSATE SODIUM 100 MG CAPSULE PO SCH ×2 (08:35→20:06)
[2018-11-14] MEDS: HEPARIN SODIUM,PORCINE 5,000 UNITS/ML VIAL SQ SCH ×2 (11:13→20:07)
[2018-11-14 12:07] VITALS: BP 143/89
[2018-11-14 15:39] VITALS: BP 128/73
[2018-11-14] MEDS: CefTRIAXone 1 GM/DEXTROSE 50 ML IV SCH (16:10)
[2018-11-14 19:00] VITALS: BP_SYST 125; BP_SYST 153; BP_DIAS 63; BP_DIAS 74
[2018-11-14] MEDS: ATORVASTATIN CALCIUM 20 MG TABLET PO SCH (20:06)
[2018-11-15] VITALS: BP 119/74
[2018-11-15 04:00] VITALS: BP 135/96
[2018-11-15 06:05] LABS: BASOPHILS % (AUTO) 0.8 % (0.0-2.0); EOSINOPHILS % (AUTO) 6.2 % (1.0-6.0); HEMATOCRIT 39.4 % (36-46); HEMOGLOBIN 13.6 g/dL (12.0-16.0); LYMPHOCYTES # (AUTO) 2.2 K/uL (1.0-4.8); LYMPHOCYTES % (AUTO) 32.9 % (22.0-44.0); MEAN CORPUSCULAR HEMOGLOBIN 35.8 pg (26.0-34.0); MEAN CORPUSCULAR HGB CONC 34.5 G/dL (31.0-37.0); MEAN CORPUSCULAR VOLUME 104 fL (80-100); MONOCYTES # (AUTO) 1.3 K/uL (0.1-1.0); MONOCYTES % (AUTO) 20.3 % (2.0-9.0); NEUTROPHILS # (AUTO) 2.6 K/uL (1.8-7.7); NEUTROPHILS % (AUTO) 39.8 % (40.0-70.0); PLATELET COUNT (AUTO) 168 K/uL (150-450); RED CELL DISTRIBUTION WIDTH 13.2 % (11.5-14.5)
[2018-11-15 06:56] LABS: ALANINE AMINOTRANSFERASE 72 U/L (12-78); ALBUMIN 2.7 g/dL (3.4-5.0); ALKALINE PHOSPHATASE 112 U/L (46-116); ANION GAP 6 mmol/L (8-16); ASPARTATE AMINOTRANSFERASE 60 U/L (15-37); BILIRUBIN,TOTAL 0.2 mg/dL (0.1-1.0); CALCIUM, TOTAL 9.1 mg/dL (8.8-10.5); CARBON DIOXIDE 29 mmol/L (22-29); CHLORIDE 102 mmol/L (98-107); CREATININE 0.53 mg/dL (0.60-1.30); GLUCOSE,RANDOM 100 mg/dL (70-110); POTASSIUM 4.4 mmol/L (3.5-5.1); SODIUM SERUM 137 mmol/L (136-145); TOTAL PROTEIN, SERUM 6.6 g/dL (6.4-8.2); UREA NITROGEN, BLOOD 17 mg/dL (7-18)
[2018-11-15 06:57] LABS: GLOMERULAR FILTR. RATE CALC > 60 mL/min (>60)
[2018-11-15 08:33] VITALS: BP 141/73
[2018-11-15] MEDS: MULTIVITAMINS WITH MINERALS, THERAPEUTIC TABLET PO SCH (08:59)
[2018-11-15] MEDS: LevETIRAcetam 500 MG TABLET PO SCH (08:59)
[2018-11-15] MEDS: PANTOPRAZOLE SODIUM 40 MG DR TABLET PO SCH (08:59)
[2018-11-15] MEDS: HEPARIN SODIUM,PORCINE 5,000 UNITS/ML VIAL SQ SCH (09:00)
[2018-11-15] MEDS: DOCUSATE SODIUM 100 MG CAPSULE PO SCH (09:00)
[2018-11-15] MEDS: ASPIRIN 81 MG CHEWABLE TABLET PO SCH (09:00)
[2018-11-15 13:01] VITALS: BP 145/88
[2018-11-15 15:52] VITALS: BP 141/75
[2018-11-15] MEDS: CefTRIAXone 1 GM/DEXTROSE 50 ML IV SCH (16:38)
== END 2018-11-15 19:31 | disposition home or self-care (01) | DRG 91 ==
LOC: EMS 13:41 → 4E 17:22
PROVIDERS: ADMIT Internal Medicine; ATTEND Internal Medicine
DX: G92 Toxic encephalopathy (principal); E43 Unspecified severe protein-calorie malnutrition; N39.0 Urinary tract infection, site not specified; F03.90 Unspecified dementia, unspecified severity, without behavioral disturbance, psychotic disturbance, mood disturbance, and anxiety; Z68.23 Body mass index [BMI] 23.0-23.9, adult; E78.00 Pure hypercholesterolemia, unspecified; F79 Unspecified intellectual disabilities; G40.909 Epilepsy, unspecified, not intractable, without status epilepticus; Z86.73 Personal history of transient ischemic attack (TIA), and cerebral infarction without residual deficits; Z88.5 Allergy status to narcotic agent
CPT/HCPCS: 51702; 70450; 87086; 93005; 96365; 97162; 97530; J0696; J1644; J7030; J7040